=== PATIENT | female | born 1985 | race Caucasian/White ===

== ENCOUNTER 2024-10-08 18:35 | Emergency (ER) | payer OTHER, SELFPAY ==
[2024-10-08 18:37] VITALS: BP 172/109; BMI 22.1
[2024-10-08 21:52] VITALS: BP 170/105
[2024-10-08 21:56] VITALS: BP 170/105
--- NOTE | 2024-10-09 00:46 | ED.GENMED ---
History of Present Illness
General
Chief Complaint: Withdrawal Symptoms
Source: patient and police ([facility] guards)
Exam Limitations: none
Time Seen by Provider: 10/09/24 00:29
Nursing documentation reviewed up to this point in time: agreed with
History of Present Illness
History of Present Illness:
39-year-old female presents to the emergency department stating that she is withdrawing from fentanyl and Xanax. Patient last used fentanyl 3 days ago. She has been on Subutex in the past.
Review of Systems
Review of Systems
Allergies reviewed?: Yes
All Other Systems: Not applicable
Constitutional: Reports no symptoms
EENT: Reports no symptoms
Respiratory: Reports no symptoms
Cardiac: Reports diaphoresis
ABD/GI: Reports no symptoms
: Reports no symptoms
Musculoskeletal: Reports no symptoms
Skin: Reports no symptoms
Neurological: Reports no symptoms
Endocrine: Reports no symptoms
Hematologic/Lymphatic: Reports no symptoms
Psychiatric: Reports anxiety
Phy Exam
General Physical Exam
General Presentation: moderate distress
General age: appears older than age
General Skin: warm and diaphoretic
General Habitus: normal
General Mental: angry, anxious, appears intoxicated and confused
General Hydration: appears well hydrated
ENT Exam
ENT Exam: EOMI, pharynx normal, neck supple and normocephalic
Eye Exam
Eye Exam: PERRL, cornea clear and conjunctiva normal
Cardiovascular Exam
Cardiovascular Exam: regular rate/rhythm and no edema
Pulmonary Exam
Pulmonary Exam: lungs clear, no respiratory distress, no rales, no crackles, no rhonchi, no stridor, no wheezing and no cough
Gastrointestinal Exam
Gastrointestinal Exam: normal bowel sounds, non tender, soft, no organomegaly, no pulsatile mass and non distended
Neurological Exam
Neurological Exam: alert and oriented x3
Musculoskeletal Exam
Musculoskeletal Exam: full ROM and no edema
Skin Exam
Skin Exam: normal color, warm/dry, no rash and no petechia
Psychiatric Exam
Psychiatric Exam: normal mood/affect
Scores
COW Clinical Opiate Withdrawal Scale
Resting Pulse Rate: 81-100
Sweating-over past 30min not from room temp or activity: Reports chills or flushing
Restlessness-observation during assessment: Frequent shifting or extraneous movements of legs/arms
Pupil Size: Pupils pinned or normal size for room light
Bone or Joint Aches: Not present
Runny Nose or Tearing-not accounted for by cold/allergies: Not present
GI Upset-over last 30min: Multiple episodes of diarrhea or vomiting
Tremor-observation of outstretched hands: Slight tremor observable
Yawning-observation during assessment: No yawning
Anxiety or Irritability: Patient obviously irritable or anxious
Gooseflesh Skin: Skin is smooth
Score: 14
Withdrawal Severity: Moderate Withdrawal, consider starting Suboxone
Course
Orders/Labs/Results
Orders:
Orders
10/08/24 18:48
EKG [Electrocardiogram (*1)] Urgent
Reason for Study: Chest Pain
EKG- Treatment ONCE
10/09/24 00:35
Test Result ONCE
10/09/24 00:45
Buprenorphine [Subutex] 4 mg SL NOW STA
10/09/24 00:56
HCG, Serum Qualitative Screen Urgent
10/09/24 01:31
Urinalysis Urgent
Date Specimen was Collected: 10/09/24
Time Specimen was Collected: 01:29
Urine Microscopic Urgent
Date Specimen was Collected: 10/09/24
Time Specimen was Collected: 01:29
Abnormal Lab Results
10/09/24
01:31
Urine Ketones 3+ A
(Negative)
Ur Leukocyte Esterase 1+ A
(Negative)
Urine Albumin 2+ A
(Neg - Trace)
Vital Signs
Initial and Last Documented VS:
Initial Vital Signs
Temp Pulse Resp BP Pulse Ox
97.6 F 78 15 172/109 100
10/08/24 18:37 10/08/24 18:37 10/08/24 18:37 10/08/24 18:37 10/08/24 18:37
Last Documented Vital Signs
Temp Pulse Resp BP Pulse Ox
97.6 F 96 19 170/105 100
10/08/24 18:37 10/08/24 23:15 10/08/24 23:15 10/08/24 21:56 10/08/24 18:37
*Critical Care Note
Total Time (30-74mins, 75-104mins- exclusive of procedures): 30 (Critical care statement: A total of 30 minutes of critical care time was provided for this patient. This time is separate from time utilized to perform the aforementioned documented
procedures. Aggregate critical care time includes only time during which I was engaged in work directl)
Update Note
Update Note:
Patient is resting comfortably, in absolutely no apparent distress. [facility] to the [facility]. [facility] guards assure me that the Suboxone pathway can be continued while in [facility]. Patient agreeable to this plan. Patient being discharged in
much improved condition. [facility]
ED Attending Note
-
Portions of this chart may have been created with voice recognition software.� Occasional wrong word or��sound alike� substitutions may have occurred due to the inherent limitations of voice recognition software.
Discharge Plan
Departure
Patient Disposition: [facility]
Date of Disposition: 10/09/24
Time of Disposition: 02:00
Patient with high blood pressure during this ER visit?: Yes
Condition: Good
Discharge Problem:
Opioid abuse, Withdrawal from benzodiazepine, Withdrawal from opioids
Instructions: Substance use disorder, BLOOD PRESSURE
Referrals:
[facility] [Family Provider] -
Activity Restrictions/Additional Instructions:
Patient is medically cleared for incarceration.
Please continue the Suboxone pathway. She received 4 mg sublingual here in the emergency department. She is currently resting comfortably. Please reassess and continue as needed.
It was a pleasure meeting you and taking part in your care. We hope for your continued healing and wellness.
Please read discharge instructions in their entirety. However, they are for general education and may not describe your exact diagnosis at discharge. Information on your ER visit and medical conditions were discussed with you along with appropriate
follow up information...
If indicated, please take your medications as instructed and indicated on discharge paperwork.
Please schedule a follow up appointment as directed. Call to schedule an appointment
Please return to the emergency department with ANY change in, persisting, or worsening of symptoms. If any of your symptoms do not improve, or persist, or become more severe within 6-12 hours, please return to the emergency department for further
care.
Please return to the emergency department if you develop a headache, neck pain/stiffness, fever greater than 100.4F, chest pain, shortness of breath, persistent nausea, vomiting, slurred speech, difficulty walking, numbness/tingling, weakness, signs
of infection or any other symptoms that are worrisome to you.
If you have any questions or concerns please do not hesitate to call the Hospital at
Interventions
Interventions:
*Risk Screen - Suicide Last Done: 10/08/24 18:37
*General Assessment Last Done: 10/08/24 18:37
*Neglect/Abuse Screening Last Done: 10/08/24 18:37
ED- Fall Risk Assessment Last Done: 10/08/24 19:03
*ED COVID-19 Vaccine History Last Done: 10/08/24 18:37
ED- Neurological Assessment Last Done: 10/08/24 19:03
ED-Psychological Assessment Last Done: 10/08/24 19:03
Discharge Date and Time
Print Language: [id number]
[2024-10-09] MEDS: SUBUTEX 4 MG SL (00:52)
[2024-10-09 01:21] LABS: HCG, Serum Qualitative Screen Negative
[2024-10-09 01:38] LABS: Urine Albumin 2+ (Neg - Trace); Urine Bilirubin Negative (Negative); Urine Character Slightly Cloudy (Clear); Urine Color Yellow; Urine Glucose Negative (Negative); Urine Ketone 3+ (Negative); Urine Leukocyte 1+ (Negative); Urine Nitrite Negative (Negative); Urine Occult Blood Negative (Negative); Urine Specific Gravity 1.025 (<1.030); Urine Urobilinogen 1+ (Neg - 1+)
[2024-10-09 02:02] LABS: Urine Amorphous Seen; Urine Bacteria Many (Negative); Urine Mucus Many; Urine Squamous Cell >30 /LPF (Few); Urine Urothelial Cell >30 /LPF (FEW)
[2024-10-09 02:20] VITALS: BP 145/87
== END 2024-10-09 02:22 ==
LOC: EMR 18:35
PROVIDERS: EMERGENCY PHYSICIAN Student in an Organized Health Care Education/Training Program
DX: F11.13 Opioid abuse with withdrawal (principal); F13.239 Sedative, hypnotic or anxiolytic dependence with withdrawal, unspecified; R03.0 Elevated blood-pressure reading, without diagnosis of hypertension
CPT/HCPCS: 99284; 81003; 81015; 84703; 93005